=== PATIENT | female | born 1995 | race African-American/Black ===

== ENCOUNTER 2017-02-22 00:37 | Emergency (ER) | payer MEDICAID ==
[~2017-02-22] VITALS: Ht 160 cm; Wt 55.0 kg
[2017-02-22 05:55] VITALS: BP 129/72
== END 2017-02-22 07:08 | disposition home or self-care (01) ==
LOC: ER 00:37
DX: S00.83XA Contusion of other part of head, initial encounter (principal); J34.2 Deviated nasal septum; Y04.0XXA Assault by unarmed brawl or fight, initial encounter; Y93.89 Activity, other specified; Y92.488 Other paved roadways as the place of occurrence of the external cause
CPT/HCPCS: 70450; 70486; 81025; 99284